=== PATIENT | male | born 1960 | race Caucasian/White ===

== ENCOUNTER 2025-07-14 19:15 | Inpatient (IN) | payer OTHER, MEDICARE ==
[~2025-07-14] VITALS: Ht 175.3 cm; Wt 80.0 kg
--- NOTE | 2025-07-14 19:22 | Physician Documentation ---
History of Present Illness General Stated Complaint: SOB Time Seen by MD: 19:21 History of Present Illness Initial Comments 65-year-old male transferred from [facility] for an episode of chest pain, the patient states over last three weeks he has had several episodes of ch est discomfort the patient states he has a an episode this morning 9:00 a.m. this morning which lasted until about 10 30 this morning. Patient has a history of hypertension and hyperlipidemia. Patient recently has traveled to [place] and returned about a week ago. No history of DVTs. Patient's pain is right now non existent he has never had any known cardiac disease. The patient is a nonsmoker. Patient has no history of DVTs or blood clots as well. The patient's symptoms are improved. No recent fevers chills nausea vomiting or diarrhea. Patient's troponin at the outside institution was 0.104 he was given aspirin at the outside institution. Medication Reconciliation Allergies: Coded Allergies: sumatriptan (Verified Allergy, Severe, 07/14/25) Scheduled Duloxetine HCl (Duloxetine HCl), 1 CAP PO DAILY, (Reported) Miscellaneous Medications Nebivolol Hcl (Bystolic tablet), 5 MG CORPAK, (Reported) Past Medical History Past Medical History: High Cholesterol, Hypertension Review of Systems All Other Systems at this time: Reviewed and Negative Physical Exam Physical Exam Physical Exam VITALS: Reviewed and as above. GENERAL: Alert, no apparent distress. HEENT: Normocephalic, atraumatic, PERRL, EOMI, dry mucosa, no erythema RESPIRATORY: Lungs clear, normal breath sounds, no respiratory distress. CHEST: No accessory muscle use, no retractions CV: Regular rate, rhythm, no edema, no murmur, No: JVD GI: Soft, non-tender, bowels sounds present, no rebound, guarding, or rigidity BACK: No CVA tenderness, or swelling MUSCULOSKELETAL: No deformities, no edema SKIN: Warm and dry, no rash NEURO: Oriented x4, No motor or sensory deficit PSYCH: Normal mood and affect, no agitation Progress Results/Orders Results/Orders Orders - OHLTHERESA ARNDT MD Chest,Single View (07/14/25 19:24) Saline Lock (07/14/25 19:24) Monitor (07/14/25 19:24) Oxygen (07/14/25 19:24) Duloxetine 30mg Capsule.Dr uGerrero 30m (07/15/25 08:00) Page Hospitalist (07/14/25 20:06) Fill Out Med Reconciliation (07/14/25 20:06) Completed Orders - OHLFS,THERESA Castillo MD Cbc/Diff (07/14/25 19:24) MG (07/14/25 19:24) Electrocardiogram (07/14/25 19:24) PBNP (07/14/25:24) Chest,Single View (07/14/25:24) D-Dimer (07/14/25:24) BMP (07/14/25 19:24) Hs Troponin I W Calculations (07/14/25 19:24) Hs Troponin I W Calculations (07/14/25 21:24) Hs Troponin I W Calculations (07/14/25 22:24) PTT (07/14/25:) Hgb A1c (07/14/25:) Lipid Panel (07/14/25) TSH (07/14/25:) Vital Signs 07/14/25 07/14/25 07/14/25 19:17 19:29 19:49 Temp 99.0 Pulse 80 88 Resp 16 16 B/P (MAP) 161/91 161/92 (115) Pulse Ox 100 99 O2 Delivery Room Air* O2 Flow Rate 0 0 0 FiO2 21 Laboratory Tests Test 07/14/25:25 White Blood Count 10.3 Red Blood Count 5.05 Hemoglobin 15.5 Hematocrit 46.3 Mean Corpuscular Volume 91.7 Mean Corpuscular Hemoglobin 30.6 Mean Corpuscular Hemoglobin Concent 33.4 Red Cell Distribution Width 13.8 Platelet Count 233 Mean Platelet Volume 9.6 Neutrophils (%) (Auto) 65.7 Lymphocytes (%) (Auto) 22.9 Monocytes (%) (Auto) 9.2 Eosinophils (%) (Auto) 1.7 Basophils (%) (Auto) 0.5 Neutrophils # (Auto) 6.8 Lymphocytes # (Auto) 2.4 Monocytes # (Auto) 0.9 Eosinophils # (Auto) 0.2 Basophils # (Auto) 0.1 CBC Comment Activated Partial Thromboplast Time 92 *H D-Dimer < 0.19 D-Dimer Comment Coagulation Comments Sodium Level 141 Potassium Level 3.5 Chloride Level 107 Carbon Dioxide Level 26.2 Anion Gap 8 Blood Urea Nitrogen 20 H Creatinine 0.88 Estimated GFR/1.73 m2 87 BUN/Creatinine Ratio 22.7 H Glucose Level 85 Hemoglobin A1c 5.5 Calcium Level 9.0 Magnesium Level 2.3 Troponin I High Sensitivity 103 *H Pro-B-Type Natriuretic Peptide 51 Albumin 3.7 Triglycerides Level 32 Cholesterol Level 254 H LDL Cholesterol 155 H HDL Cholesterol 68 H Cholesterol/HDL Ratio 3.7 Thyroid Stimulating Hormone (TSH) 3.17 Chemistry Comments EKG/XRAY/CT/US/VASC/MRI Chest X-Ray : Additional Comments Patient: PAVEL GHOSH Medical Record: [id number] [facility] : 1960, Age: 65 Sex: Male Location: ER Patient Status: [facility] ER Service Date/Time: 07/14/251923 Ordering Physician: THERESA KEVIN MD Exam: CHEST,SINGLE VIEW CLINICAL HISTORY: CP TECHNIQUE: View of the chest was obtained. WID: COMPARISON: None FINDINGS: Lungs: clear Cardiomediastinal silhouette: normal in size Bones: No acute osseous abnormality. Imaged upper Abdomen: unremarkable. IMPRESSION: 1. No acute cardiopulmonary disease. Electronically Signed by:ANNEL BURCH MD Date & Time: 07/14/252014 Dictated by: ANNEL BURCH MD Dictation date and time: 07/14/252014 Primary Care Provider: NO PRIMARY CARE PROVIDER cc: THERESA KEVIN MD ~ Medical Decision Making Findings Patient's EKG shows a sinus rhythm with a normal axis a rate of 72 the EKG was interpreted by me as a normal EKG. The patient's pulse oximetry was interpreted as a normal and adequate pulse oximetry. The patient is ekg monitor tech was interpreted as sinus rhythm. The patient has an elevated troponin, the patient was given aspirin at the referring facility he has also been on heparin. Patie nt is pain-free the patient's EKG was nonischemic appearing there was no evidence of ST-elevation or ST-depression. The patient will be admitted to the hospitalist for further workup. The patient's heart score is four Departure Admitted to Inpatient Unit: yes, to hospitalist Impression: Primary Impression: Chest pain Qualified Codes: R07.9 - Chest pain, unspecified Additional Impression: Elevated troponin Referrals: NO PRIMARY CARE PROVIDER (PCP) Signature Scribe Signature: no scribe Attestation: The note accurately reflects work and decisions made by me.Theresa Kevin MD 07/15/25 05:38 THERESA KEVIN MD Jul 14, 2025 19:21
--- NOTE | 2025-07-14 19:32 | ELECTROCARDIOGRAPH REPORT ---
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
[2025-07-14 19:37] LABS: MEAN PLATELET VOLUME 9.6 FL (7.4-10.4); RED CELL DISTRIBUTION WIDTH 13.8 % (11.5-14.5)
[2025-07-14] MEDS ORDERED: NEBI5TAB9 CORPAK (19:43)
[2025-07-14 19:56] LABS: CREATININE 0.88 MG/DL (0.60-1.10); PRO BRAIN NATRIURETIC PEPTIDE 51 PG/ML (0-125); TOTAL CARBON DIOXIDE 26.2 MMOL/L (24-32); eCRCL 86 ML/MIN; eGFR 87 ML/MIN
--- NOTE | 2025-07-14 20:16 | RADIOLOGY REPORT ---
CLINICAL HISTORY: CP TECHNIQUE: View of the chest was obtained. WID: COMPARISON: None FINDINGS: Lungs: clear Cardiomediastinal silhouette: normal in size Bones: No acute osseous abnormality. Imaged upper Abdomen: unremarkable. IMPRESSION: 1. No acute cardiopulmonary disease.
[2025-07-14] MEDS ORDERED: mag hydrox/Alum hydrox/simeth 30ml oral suspension PO PRN (20:55)
[2025-07-14] MEDS ORDERED: potassium Cl 40MEQ/1/2NS 520ml 520 ML IV PRN (20:55)
[2025-07-14] MEDS ORDERED: magnesium hydroxide 30ml (MOM) UD suspension PO PRN (20:55)
[2025-07-14] MEDS ORDERED: magnesium Cl slow-release 64mg tablet PO PRN (20:55)
[2025-07-14] MEDS ORDERED: potassium Cl 20 mEq SR tablet PO PRN (20:55)
[2025-07-14] MEDS ORDERED: magnesium sulf-water 4G/100mL 100 ML IV PRN (20:55)
[2025-07-14] MEDS ORDERED: magnesium sulf-water 2g/50mL 50 ML IV PRN (20:55)
[2025-07-14] MEDS ORDERED: ondansetron/PF 4mg/2ml inj IV PRN (20:55)
[2025-07-14] MEDS ORDERED: aminophylline 250mg/10ml inj. IV PRN (21:05)
[2025-07-14] MEDS ORDERED: metoprolol tartrate 1mg/ml inj IV PRN (21:05)
[2025-07-14] MEDS: HEPARIN DRIP-CARDIAC**PHARMACIST-TO-DOSE IV ONE (21:12)
--- NOTE | 2025-07-14 21:18 | HISTORY AND PHYSICAL-Residence ---
History & Physical Providers to CC Resident Creating Document: BRYON NOYOLA RES ~ History of Present Illness Reason for Admit\\Complaint: chest pain, possible NSTEMI History of Present Illness 65-year-old male with past medical history of hypertension, hyperlipidemia, multiple spinal surgeries was transferred from [facility] for further evaluation and management of possible NSTEMI. The patient presented to [facility] today morning with chief complaint of recurrent chest pain chest pain that started when the patient was in [place] for a six week trip from which he returned one week ago. He stated that he thinks it initially started in the 1st week of his [place] trip when he had a fall and sustained severe injury in his left ribs and was told by the PA of his group that he might have sustained a rib fracture. He he reports that a few days following that insulin restarted having dull chest discomfort and heaviness in the center of the chest radiating to his left arm and associated with the shortness of breath that lasted for 10 minutes. He reported that these episodes of chest discomfort and heaviness occurred spontaneously and intermittently without any triggers or without any relieves. He stated that he woke up multiple times from his sleep because of the chest discomfort. He mentioned that the chest discomfort and heaviness has been progressively getting worse and lasting longer. Today's episode he had the worst chest discomfort that is similar kind in the center of the chest radiating to his left arm and lasted for more than an hour and that prompted him to go seek medical attention. At [facility] the patient was found to have elevated troponins. Was suspected to have an NSTEMI and was started on IV heparin drip. The patient was also treated with a nitroglycerin and IV metoprolol. Has been transferred to our hospital for further care and evaluation. The patient currently denies any chest pain at the moment. He stated that he has mild tenderness on deep breathing of the left lateral ribs. He denied any other concerns or complaints. The patient denied any recent fever, chills, nausea, vomiting, headaches, dizziness. He denied any recent weight loss or weight gain. Allergies: Coded Allergies: sumatriptan (Verified Allergy, Severe, 07/14/25) Home Medications Home Medications Active Reported Bystolic tablet (Nebivolol Hcl) 5 Mg Tablet 5 Mg CORPAK Past Medical History Past Medical History Hypertension, hyperlipidemia, renal stones Past Surgical History Surgical History Comment "At least 25 spine and orthopedic surgeries" due to [employer] related injuries. Cervical spinal fusion Lower back fusion Right foot repair surgery. Bilateral shoulder repairs. Past Social History Social History Comment Lives at home. Denies smoking history. Occasionally drinks alcohol. Denied any recreational drug use. PCP at [facility] primary [facility] ROS All Other Systems: Reviewed and Negative ROS As stated above in the HPI, otherwise all systems are reviewed and negative. Exam Vitals: Vital Signs Date Time Temp Pulse Resp B/P (MAP) Pulse Ox O2 Delivery O2 Flow Rate FiO2 07/14/25 21:14 99.0 82 18 169/100 (123) 96 0 21 07/14/25 19:29 Room Air* General: General: Awake and Alert, no acute distress. HEENT: Conjunctiva pink, Sclera clear, Mucus Membranes moist. Neck: Supple without masses and tenderness. Resp: Unlabored. Lungs clear to auscultation bilaterally. There is tenderness on palpation of the lateral ribs on the left side. Heart: Regular Rate and rhythm, normal S1 and S2 without murmur, rub or gallop. Abdomen: Soft and non tender no organomegaly Extremities: No cyanosis,clubbing or edema. Skin: Warm and Dry. Neurology: Cranial nerves 2-12 intact. No focal motor or sensory deficits. Psychiatric: Normal mood and affect. Musculoskeletal: No joint deformities noted. Diagnostic Data Last Recorded Lab Results: 07/14/25192407/14/251924 Diagnostic Data: Laboratory Tests Test 07/14/25 19:25 D-Dimer < 0.19 MG/L FEU (0-0.50) D-Dimer Comment Coagulation Comments Advance Care Planning Advanced Care planning: Add on additional 30 min Additional Plan NSTEMI EKG shows normal sinus rhythm. No significant ST segment changes noted. Serial trending of troponin - 103, 96, 103. Chest x-ray negative for any acute cardiopulmonary disease. Patient received aspirin at [facility]. He was started on IV heparin drip. We will continue the heparin drip. Start the patient on metoprolol tartrate 25 b.i.d.. Increase beta-blockers as tolerated. Atorvastatin 40 mg p.o. daily. Nitroglycerin sublingual p.r.n. for pain. Lexiscan in the a.m.. Follow up with the A1c, TSH, lipid panel. Follow up with the echocardiography to check for any wall motion abnormalities. Hypertension Patient reported that he is on nebivolol at home. Currently started on metoprolol tartrate 25 mg p.o. b.i.d. Continue to monitor blood pressures closely. We will start p.r.n. IV hydralazine. History of hyperlipidemia Reported that he has a known history of hyperlipidemia but does not take any medications. He reports that he did not want to be on anticholesterol medications in the past. Started the patient on atorvastatin 40 mg p.o. daily. Follow up with lipid panel. CODE STATUS: Full code DVT prophylaxis: IV heparin GI prophylaxis: None Diet: NPO after midnight Disposition: Continue medical management. Follow up with the echocardiography under Lexiscan. Bryon Noyola MD Internal Medicine Resident, PGY-3 I saw and discussed the case with the resident Agree with assessment and plan as documented Date of Service: Jul 14, 2025 Billing Provider: JANEEN SYED MD, SURYA PRATIK, RES Jul 14, 2025 21:18 JANEEN SYED MD Jul 15, 2025 04:07
[2025-07-14] MEDS ORDERED: heparin 10,000 units/1 ML INJ IV PRN (21:30)
[2025-07-14 21:31] LABS: CHOL/HDL RATIO 3.7 (0.00-4.99); LDL CHOLESTEROL 155 MG/DL (50-100)
[2025-07-14 21:32] LABS: APTT 92 SECONDS (22-32)
[2025-07-14] MEDS: HEPARIN DRIP INITAL BOLUS --- DO NOT GIVE/ORDER MC ONE ×2 (21:46→21:47)
[2025-07-14] MEDS: heparin 25,000 UNIT/250ml bag 250 ML IV PRN (23:53)
[2025-07-15] VITALS (21 sets, daily range): BP systolic 120–155; BP diastolic 71–100; PULSE 68–148; RESP 14–20; TEMP 97.2–98.4; O2SAT 95–99
[2025-07-15 02:17] LABS: MEAN PLATELET VOLUME 9.3 FL (7.4-10.4); RED CELL DISTRIBUTION WIDTH 13.8 % (11.5-14.5)
[2025-07-15 02:32] LABS: CREATININE 0.82 MG/DL (0.60-1.10); TOTAL CARBON DIOXIDE 24.5 MMOL/L (24-32); eCRCL 92 ML/MIN; eGFR > 90 ML/MIN
[2025-07-15] MEDS: MESSAGE TO NURSING IV ONE ×4 (03:14→21:51)
[2025-07-15] MEDS ORDERED: DULO60CA65 PO (04:57)
[2025-07-15] MEDS: heparin 10,000 units/1 ML INJ IV PRN (07:02)
[2025-07-15] MEDS: potassium Cl 20 mEq SR tablet PO PRN (07:31)
[2025-07-15] MEDS: duloxetine 30mg CAPSULE.DR PO SCH (07:32)
[2025-07-15] MEDS: docusate sod 100mg capsule PO SCH (08:00)
[2025-07-15] MEDS: K and/or MAG REPLACEMENT MC SCH (08:00)
[2025-07-15] MEDS ORDERED: NEBI5TAB13 PO (08:53)
[2025-07-15] MEDS: regadenoson 0.4mg/5ml syringe IV PRN (09:43)
--- NOTE | 2025-07-15 11:33 | RADIOLOGY REPORT ---
HISTORY: NSTEMI TECHNIQUE: At peak stress, 35 mCi of sestamibi was administered intravenously. Soon thereafter, gated SPECT imaging of the heart was performed with the patient in the supine position. At rest, 8.6 mCi of sestamibi was administered intravenously. Soon thereafter, gated SPECT imaging of the heart was performed with the patient in the supine position. FINDINGS: The left ventricular myocardium demonstrates uniform radiotracer distribution, without perfusion defect. The left ventricular cavity is normal in size. Calculated LVEF is 46 %. No segmental wall motion abnormality. IMPRESSION: NORMAL MYOCARDIAL PERFUSION EXAM. LVEF 46 %.
[2025-07-15] MEDS: aspirin 81mg, enteric-coated 1 TAB TABLET.DR PO SCH (12:09)
[2025-07-15] MEDS: hydrALAZINE 20mg/ml inj. IV PRN (12:10)
--- NOTE | 2025-07-15 13:45 | ELECTROCARDIOGRAPH REPORT ---
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 TANNER Patterson Measurements Intervals [place] Rate: 118 P: 75 CO: 134 QRS: 64 QRSD: 93 T: 14 QT: 328 QTc: 460 Interpretive Statements Sinus tachycardia Right atrial enlargement Baseline wander in lead(s) V2 Electronically Signed On 07-16-2025 12:04:[address] TANNER Patterson Please click the below link to view image of tracing.
[2025-07-15] MEDS: diltiazem 5mg/ml 5ml inj. IV ONE (14:33)
[2025-07-15] MEDS: metoprolol tartrate 1mg/ml inj IV ONE (15:59)
--- NOTE | 2025-07-15 19:40 | PROGRESS NOTE- Residence ---
Progress Note - Resident Providers to CC Resident Creating Document: VON SANDERS RES CC: ROMANA DSOUZA MD ~ Antibiotic Timeout Antibiotic Ordered?: Yes Subjective Patient was seen and examined on bedside he says that he has very mild chest pain and headache. 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 Objective Vital Signs Date Time Temp Pulse Resp B/P (MAP) Pulse Ox O2 Delivery O2 Flow Rate FiO2 07/15/25 16:10 85 07/15/25 14:33 137/80 07/15/25 14:00 98.2 19 98 Room Air 07/15/25 02:00 0.0 21 Result Diagram: 07/15/25 0206 07/15/25 0206 General: Awake and Alert, no acute distress. HEENT: Conjunctiva pink, Sclera clear, Mucus Membranes moist. Neck: Supple without masses and tenderness. Resp: Unlabored. Lungs clear to auscultation bilaterally. Heart: Rhythm regular, tachycardic, normal S1 and S2 without murmur, rub or gallop. Abdomen: Soft and non tender no organomegaly Extremities: No cyanosis,clubbing or edema. Skin: Warm and Dry. Neurology: Cranial nerves 2-12 intact. No focal motor or sensory deficits. Psychiatric: Normal mood and affect. Musculoskeletal: No joint deformities noted. Coagulation Studies Laboratory Tests Test 07/14/25 19:25 07/15/25 12:49 Activated Partial Thromboplast Time 92 SECONDS (22-32) *H D-Dimer < 0.19 MG/L FEU (0-0.50) D-Dimer Comment APTT (Heparin Protocol) 58 SECONDS (45-60) Coagulation Comments Plan Plan Acute Coronary Syndrome Secondary to NSTEMI EKG shows normal sinus rhythm. No significant ST segment changes noted. Serial trending of troponin - 103, 96, 103. Troponin perfomed today negative Chest x-ray negative for any acute cardiopulmonary disease. Patient received aspirin at [facility]. He was started on IV heparin drip. We will continue the heparin drip. Dced Heparin started patient on Coreg 12.5 mg b.i.d. Patient received metoprolol started and Cardizem IV 5 mg in view of tachycardia Dced metoprolol Nitroglycerin sublingual p.r.n. for pain. Lexiscan: NORMAL MYOCARDIAL PERFUSION EXAM. TSH normal, Lipid panel:TG 32, cholesterol 254 LDL 155 HDL 68 in view of the started patient on 80 mg atorvastatin Echo shows:Mid infero- and anteroseptal segments appear mildly hypokinetic. Overall systolic function is normal. Overall LVEF is 55-60%. Consulted Dr. Mila Vaughan awaiting recommendations Hypertension Continue p.r.n. IV hydralazine. Held nebivolol and metoprolol, started patient on carvedilol 12.5 mg BID History of hyperlipidemia Reported that he has a known history of hyperlipidemia but does not take any medications. He reports that he did not want to be on anticholesterol medications in the past. TG 32, cholesterol 254 LDL 155 HDL 68 in view of the started patient on 80 mg atorvastatin CODE STATUS: Full code DVT prophylaxis: Heparin drip DC today in view of that started lovenox GI prophylaxis: None Diet: HEART HEALTHY DIET Disposition: Continue medical management ,consulted Dr. Mila Vaughan awaiting recommendations. Date of Service: Jul 15, 2025 Billing Provider: ROMANA DSOUZA MD, SANJAY, RES Jul 15, 2025 19:40
--- NOTE | 2025-07-15 21:27 | CARDIOLOGY REPORT ---
APPROVED REPORT EXAM: Comprehensive 2D, Doppler, and color-flow Echocardiogram. 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 113.4 cm/s AoV VTI 21.4 cm AO Peak GR. 5.1 mmHg AO Mean GR. 3 mmHg LVOT VTI 20.88 cm LVOT Peak William. 92.2 cm/s CARLENE(VTI)/BSA 3.50 cm2/m2 CARLENE (VTI) 3.50 cm2 Mitral Valve MV E Velocity 58.8 cm/s MV Peak Gr. 2 mmHg MV DECEL TIME 260 ms MV A Velocity 66.8 cm/s MV Mean Gr. 1 mmHg MV PHT 56 ms E/A Ratio 0.9 MVA (PHT) 3.93 cm2 MV VMax 65.0 cm/s MV VMean 32.4 cm/s MVA VTI 5.15 cm2 MV VTI 14.5 cm TDI Lateral E' P. V 12.16 cm/s Medial E' P. V 9.02 cm/s E/Lateral E' 4.8 E/Medial E' 6.5 Tricuspid Valve TR P. Velocity 278 cm/s RAP ESTIMATE 10 mmHg TR Peak Gr. 31 mmHg RVSP 41 mmHg LEFT VENTRICLE Normal LV size and wall thickness. Mid infero- and anteroseptal segments appear mildly hypokinetic. Overall systolic function is normal. Overall LVEF is 55-60%. RIGHT VENTRICLE RV is normal size and function. Estimated PA systolic pressure is 41 mmHg. ATRIA The left atrium size is normal. The right atrium size is normal. AORTIC VALVE Trileaflet AV appears sclerotic without stenosis or insufficiency. MITRAL VALVE Mild MV annular thickening without stenosis. Trace regurgitation. TRICUSPID VALVE TV appears structurally normal with trace regurgitation. PULMONIC VALVE Normal PV without stenosis, physiologic insufficiency. GREAT VESSELS The aortic root is normal in size. IVC is normal in size and collapses less than 50% with inspiration. PERICARDIUM Normal pericardium. No pericardial effusion seen. Other Information Study Quality: Adequate Conclusion Normal LV size and wall thickness. Mid infero- and anteroseptal segments appear mildly hypokinetic. Overall systolic function is normal. Overall LVEF is 55-60%. RV is normal size and function. Estimated PA systolic pressure is 41 mmHg. The left atrium size is normal. The right atrium size is normal. Trileaflet AV appears sclerotic without stenosis or insufficiency. Mild MV annular thickening without stenosis. Trace regurgitation. TV appears structurally normal with trace regurgitation. Normal PV without stenosis, physiologic insufficiency. Normal pericardium. No pericardial effusion seen.
--- NOTE | 2025-07-15 21:45 | CONSULTATION REPORT ---
Cardiac Consultation Report Providers to CC CC: LACI VAN MD ~ Progress Note: 65yo man with HTN, HLD admitted with CP x 4-5 weeks, found to have mildly elevated trop. States he was in [place] for ~ 6 weeks, had an injury where he hurt his left ribs after fall. Noticed CP starting a few weeks later. Reports substernal/left sided, radiates to LUE. Sometimes with exertion, sometimes at rest. Also has noticed exertional SOB. States he is very active, noticed increasing SOB when going up stairs in [place] that would require him to stop and take a break. Subjective Subjective Since, reports 1-2 episodes of CP. Denies any SOB, bleeding, LE edema. Objective Vitals Vital Signs Date Time Temp Pulse Resp B/P (MAP) Pulse Ox O2 Delivery O2 Flow Rate FiO2 07/15/25 18:00 97.3 85 14 138/77 (97) 97 Room Air 07/15/25 02:00 0.0 21 Lab Results: 07/15/25 0206 07/15/25 0206 Objective GENERAL: Awake, alert, NAD CV: Reg rhythm, normal rate. No murmurs LUNGS:CTAB GI: +BS, soft, non-tender/distended. EXT: 2+ radial pulses, no edema PSYCH: cooperative Coagulation Studies Laboratory Tests Test 07/14/25 19:25 07/15/25 12:49 Activated Partial Thromboplast Time 92 SECONDS (22-32) *H D-Dimer < 0.19 MG/L FEU (0-0.50) D-Dimer Comment APTT (Heparin Protocol) 58 SECONDS (45-60) Coagulation Comments Problem\Assessment\Plan Problems/Diagnosis: (1) Chest pain Assessment & Plan: Some typical features including exertional SOB. Possibly cardiac. Also found to have mildly elevated troponins. Risk factors of HTN, HLD, age. --MPI negative, however, TTE with regional WMA. --Given such, typical features, mildly elevated trop, will proceed with [facility] for definitive diagnosis --Cont ASA 81mg QD --Cont Atorva 80 --Cont BBx --Start Amlodipine 5mg QD Problem Qualifiers (1) Chest pain: Qualified Codes: R07.9 - Chest pain, unspecified ALLISON VAN MD Jul 15, 2025 21:45
[2025-07-16] VITALS (15 sets, daily range): BP systolic 124–180; BP diastolic 75–108; PULSE 69–90; RESP 14–20; TEMP 97.6–98.3; O2SAT 96–99
[2025-07-16 05:53] LABS: CREATININE 0.92 MG/DL (0.60-1.10); TOTAL CARBON DIOXIDE 25.6 MMOL/L (24-32); eCRCL 82 ML/MIN; eGFR 83 ML/MIN
[2025-07-16 05:59] LABS: MEAN PLATELET VOLUME 9.5 FL (7.4-10.4); RED CELL DISTRIBUTION WIDTH 13.6 % (11.5-14.5)
[2025-07-16] MEDS ORDERED: non-formulary drug (Duloxetine HCl 1 CAP) PO SCH (08:00)
[2025-07-16] MEDS ORDERED: verapamil 2.5 mg/ml inj IV ONE (10:36)
[2025-07-16] MEDS ORDERED: LIDOcaine 1% (10mg/ml) 2ml vial ONE (10:36)
[2025-07-16] MEDS ORDERED: midazolam 1 mg/ML 2ml injection ONE (10:37)
[2025-07-16] MEDS ORDERED: heparin 1,000unit/ml 10ml vial 10 ML ONE (10:37)
[2025-07-16] MEDS ORDERED: fentaNYL/PF 50MCG/1 ML 2ML syringe ONE (10:37)
[2025-07-16] MEDS ORDERED: iohexol 350 MG/ML 50ML vial IV ONE ×2 (10:37→11:40)
[2025-07-16] MEDS ORDERED: nitroGLYCERIN 500mcg/5mL D5W 5 ML IV ONE (10:38)
[2025-07-16] MEDS ORDERED: clopidogrel 300mg tablet ONE (11:34)
--- NOTE | 2025-07-16 12:03 | CARDIAC CATH REPORT ---
Cardiac Cath Report Providers to CC CC: LACI VAN MD Procedure Comments: 1. Left Heart Catheterization 2. Selective Coronary Angiography 3. Percutaneous Coronary Intervention of the Obtuse Marginal Artery x 1 4. Percutaneous Coronary Intervention of the Right Coronary Artery x 1 5. Right Radial Artery Access Brief History/Indications: 65yo man with HTN, HLD recurrent chest pains and WMA on echo referred for veronica luation. Techniques: After informed consent was obtained, the patient was brought to the cardiac catheterization laboratory and prepped and draped in usual sterile fashion for left heart catheterization and other procedures mentioned above. The right wrist was anesthetized with 1% Lidocaine and the right radial artery accessed via the Seldinger technique after which a 6Fr sheath was placed. Through this a TIG was used to engage the left ventricle, the left coronary artery, and the right coronary artery. See below for interventional procedure details. At the conclusion of the case the sheath was removed and hemostasis obtained with a VascBand. Findings Findings: HEMODYNAMICS: LV: 125/- mmHg LVEDP: 4 mmHg Ao: 125/81, MAP 103 mmHg CORONARY ARTERIES: Co Dominant LMCA: Luminal Irregularities LAD: Mid 30% stenosis D1: Luminal Irregularities D2: Small, Luminal Irregularities LCx: 20% distal stenosis OM1: Small, Luminal Irregularities OM2: 90% stenosis prior to distal bifurcation OM3: Luminal Irregularities RCA: 80% proximal stenosis. 30% distal stenosis PDA: Luminal Irregularities PL: Luminal Irregularities PERCUTANEOUS CORONARY INTERVENTION of the OM: An XBC4 guide was used to engage the left coronary artery. The OM lesion was crossed with a BMW wire. Pre-dilatation was performed with a 2.0x12mm balloon. Repeat angiography revealed adequate pre-treatment of the lesion without evidence of dissection. Subsequently, a 3.0x15mm [place] FELICIT[place] was deployed across the lesion. The lesion was not post-dilated. Repeat angiography revealed adequate stent expansion without evidence of dissection. PERCUTANEOUS CORONARY INTERVENTION of the RCA: An XB RCA guide was used to engage the right coronary artery. The RCA lesion was crossed with a BMW wire. Pre-dilatation was performed with a 2.0x12mm balloon. Repeat angiography revealed adequate pre-treatment of the lesion without evidence of dissection. Subsequently, a 2.5x15mm [place] FELICITAS was deployed across the lesion. The lesion not post-dilated. Repeat angiography revealed adequate stent expansion without evidence of dissection. Results Results: 1. Obstructive CAD involving the OM2 and prox RCA 2. PCI of OM2 with 3.0x15mm [place] FELICITAS 3. PCI of RCA with 2.5x15mm [place] FELICITAS 4. RRA access, closed with VascBand RECOMMENDATIONS: 1. Cont ASA 81mg QD indefinitely 2. Cont plavix 75mg QD x 6 months 3. Recommend uptitration of other max-tolerated GDMT ALLISON VAN MD Jul 16, 2025 12:03
--- NOTE | 2025-07-16 16:30 | PROGRESS NOTE- Residence ---
Progress Note - Resident Providers to CC Resident Creating Document: [facility] RES CC: ROMANA DSOUZA MD ~ Antibiotic Timeout Antibiotic Ordered?: No Subjective Patient was seen and examined on bedside after the stent placement, he says he is feeling much better reports that he do not have chest pain anymore. Objective Vital Signs Date Time Temp Pulse Resp B/P (MAP) Pulse Ox O2 Delivery O2 Flow Rate FiO2 07/16/25 15:04 81 07/16/25 02:00 97.8 16 124/75 (91) 98 Room Air 07/15/25 02:00 0.0 21 Result Diagram: 07/16/25 0500 07/16/25 0500 General: Awake and Alert, no acute distress. HEENT: Conjunctiva pink, Sclera clear, Mucus Membranes moist. Neck: Supple without masses and tenderness. Resp: Unlabored. Lungs clear to auscultation bilaterally. Heart: Rhythm regular, tachycardic, normal S1 and S2 without murmur, rub or gallop. Abdomen: Soft and non tender no organomegaly Extremities: No cyanosis,clubbing or edema. Skin: Warm and Dry. Neurology: Cranial nerves 2-12 intact. No focal motor or sensory deficits. Psychiatric: Normal mood and affect. Musculoskeletal: No joint deformities noted. Coagulation Studies Laboratory Tests Test 07/14/25 19:25 07/15/25 12:49 Activated Partial Thromboplast Time 92 SECONDS (22-32) *H D-Dimer < 0.19 MG/L FEU (0-0.50) D-Dimer Comment APTT (Heparin Protocol) 58 SECONDS (45-60) Coagulation Comments Plan Plan This is a pleasant 65-year-old male with past medical history of hypertension, hyperlipidemia admitted patient for the evaluation of chest pain. Plan Acute Coronary Syndrome Secondary to NSTEMI EKG shows normal sinus rhythm. No significant ST segment changes noted. Serial trending of troponin - 103, 96, 103. Troponin perfomed today negative Chest x-ray negative for any acute cardiopulmonary disease. Patient received aspirin at [facility]. He was started on IV heparin drip. We will continue the heparin drip. Dced Heparin started patient on Coreg 12.5 mg b.i.d. Patient received metoprolol started and Cardizem IV 5 mg in view of tachycardia Dced metoprolol Nitroglycerin sublingual p.r.n. for pain. Lexiscan: NORMAL MYOCARDIAL PERFUSION EXAM. TSH normal, Lipid panel:TG 32, cholesterol 254 LDL 155 HDL 68 in view of the started patient on 80 mg atorvastatin Echo shows:Mid infero- and anteroseptal segments appear mildly hypokinetic. Overall systolic function is normal. Overall LVEF is 55-60%. Consulted Dr. Vaughan, who performed PERCUTANEOUS CORONARY INTERVENTION of the OM PERCUTANEOUS CORONARY INTERVENTION of the RCA Stent s/p day [address] to that [address] Vaughan recommended aspirin 81 indefinitely and Plavix 75 for six months. Patient is currently on Plavix and clopidogrel Hypertension Continue p.r.n. IV hydralazine. Held nebivolol and metoprolol, Continue carvedilol 12.5 mg b.i.d. and amlodipine 5 mg daily History of hyperlipidemia Reported that he has a known history of hyperlipidemia but does not take any medications. He reports that he did not want to be on anticholesterol medications in the past. TG 32, cholesterol 254 LDL 155 HDL 68 in view of the started patient on 80 mg atorvastatin Continue statin 80 mg CODE STATUS: Full code DVT prophylaxis: Heparin drip DC today in view of that started lovenox GI prophylaxis: None Diet: HEART HEALTHY DIET Disposition: Continue medical management , Dr. Vaughan performed PCI today, patient is feeling much better will likely be discharged tomorrow. Date of Service: Jul 16, 2025 Billing Provider: ROMANA DSOUZA MD, SANJAY, RES Jul 16, 2025 16:30
[2025-07-16] MEDS ORDERED: enoxaparin 40mg/0.4ml syringe SUBCUT SCH (20:00)
[2025-07-17 02:00] VITALS: BP 127/84; PULSE 84; RESP 12; TEMP 98.3; O2SAT 95
[2025-07-17] MEDS ORDERED: morphine 4 MG/ML inj SYRINge IV PRN (02:05)
[2025-07-17] MEDS: HYDROcodone/acetaminophen 5mg/325mg tablet PO PRN (02:08)
[2025-07-17 06:00] VITALS: BP 136/88; PULSE 73; RESP 15; TEMP 97.5; O2SAT 99
[2025-07-17 07:55] LABS: MEAN PLATELET VOLUME 9.5 FL (7.4-10.4); RED CELL DISTRIBUTION WIDTH 13.4 % (11.5-14.5)
[2025-07-17 08:00] VITALS: RESP 15; O2SAT 99
[2025-07-17] MEDS: aspirin 81mg, enteric-coated 1 TAB TABLET.DR PO SCH (08:12)
[2025-07-17 08:36] LABS: CREATININE 0.92 MG/DL (0.60-1.10); TOTAL CARBON DIOXIDE 27.4 MMOL/L (24-32); eCRCL 82 ML/MIN; eGFR 83 ML/MIN
[2025-07-17] MEDS ORDERED: CLOP75TA34 PO (10:25)
[2025-07-17] MEDS ORDERED: NEBI5TAB13 PO ×2 (10:25→18:23)
[2025-07-17] MEDS ORDERED: NITR0.4T51 SL (10:25)
[2025-07-17] MEDS ORDERED: ATOR20TA66 PO (10:25)
[2025-07-17] MEDS ORDERED: ASPI-1071 PO (10:25)
[2025-07-17 11:00] VITALS: BP 128/84; PULSE 85; RESP 18; TEMP 98.5; O2SAT 95
--- NOTE | 2025-07-17 18:03 | DISCHARGE SUMMARY-Residence ---
Discharge Summary Providers to CC Resident Creating Document: REI MASCORRO RES ~ Discharge Summary Admission Diagnosis: NSTEMI Hospital Course DATE OF ADMISSION: 07/14/2025 DATE OF DISCHARGE: 07/17/2025 Hospital course same as mentioned discharge summary. 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 Nitroglycerin SL* (Nitrostat SL*) 0.4 Mg Tablet 0.4 MG SL Q5MIN PRN for chest pain, #7 TAB Changed Medications: Nebivolol HCl (Nebivolol HCl) 5 Mg Tablet 5 MG PO DAILY for 30 Days, #30 TAB 0 Refills (Changed from: 1 TAB) Continued Medications: Duloxetine HCl (Duloxetine HCl) 60 Mg Capsule. 1 CAP PO DAILY for 30 Days, #30 CAP 0 Refills Discharge Summary: As per HPI: 65-year-old male with past medical history of hypertension, hyperlipidemia, multiple spinal surgeries was transferred from [facility] for further evaluation and management of possible NSTEMI. The patient presented to [facility] today morning with chief complaint of recurrent chest pain chest pain that started when the patient was in [place] for a six week trip from which he returned one week ago. He stated that he thinks it initially started in the 1st week of his [place] trip when he had a fall and sustained severe injury in his left ribs and was told by the PA of his group that he might have sustained a rib fracture. He he reports that a few days following that insulin restarted having dull chest discomfort and heaviness in the center of the chest radiating to his left arm and associated with the shortness of breath that lasted for 10 minutes. He reported that these episodes of chest discomfort and heaviness occurred spontaneously and intermittently without any triggers or without any relieves. He stated that he woke up multiple times from his sleep because of the chest discomfort. He mentioned that the chest discomfort and heaviness has been progressively getting worse and lasting longer. Today's episode he had the worst chest discomfort that is similar kind in the center of the chest radiating to his left arm and lasted for more than an hour and that prompted him to go seek medical attention. At [facility] the patient was found to have elevated troponins. Was suspected to have an NSTEMI and was started on IV heparin drip. The patient was also treated with a nitroglycerin and IV metoprolol. Has been transferred to our hospital for further care and evaluation. The patient currently denies any chest pain at the moment. He stated that he has mild tenderness on deep breathing of the left lateral ribs. He denied any other concerns or complaints. The patient denied any recent fever, chills, nausea, vomiting, headaches, dizziness. He denied any recent weight loss or weight gain. Hospital course: On further evaluation EKG showed normal sinus rhythm no ST or T-wave changes noted. Serial troponins 103, 96, 103, 80, 71. Chest x-ray negative for acute cardiopulmonary disease. Patient was given aspirin at [facility]. He was started on the heparin drip. Started metoprolol tartrate 25 b.i.d. atorvastatin 40 p.o. daily nitroglycerin sublingual p.r.n. for chest pain. A1c was 5.5. Lipid panel LDL 155, HDL 68, cholesterol 254, triglycerides 32. Echo was done which showed normal LV size and thickness, mild inferior and anteroseptal segments hypokinesia overall systolic function was normal EF 55-60% RVSP 41. Lexiscan was done which showed no perfusion defect. Despite negative workup, he had concerning symptoms and he has a very active baseline hence Cardiology was consulted and coronary angiogram was done which showed occlusion of obtuse marginal and RCA PCI and stenting of the above to arteries was done. He takes nebivolol at home and he did not want to take metoprolol as he stated that it triggers his asthma. Hence he was given Coreg here 12.5 b.i.d.. On discharge increased the dose of nebivolol as he was hypertensive during his stay. Post stenting dual antiplatelets aspirin and Plavix were started, statin was continued. He is very active and has been cleared for discharge. His hospital course is uncomplicated he is hemodynamically stable on the day of discharge and her physical exam is as follows: General: Awake and Alert, no acute distress. HEENT: Conjunctiva pink, Sclera clear, Mucus Membranes moist. Neck: Supple without masses and tenderness. Resp: Unlabored. Equal breath sounds bilaterally. Heart: Regular rhythm, normal S1 and S2, no rub, murmur or gallop. Abdomen: Soft and non tender no organomegaly. Normal bowel sounds x4 quadrant normoactive. No guarding or rigidity. Extremities: Normal ROM, no swelling, nontender. No cyanosis,clubbing or edema. Musculoskeletal: Normal posture and gait. No joint swelling, deformity or tenderness, full range of motion and strength 5 x 5 in all extremities. 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 Skin: Warm and Dry. Discharge medications can be found above. Patient is being discharged with the following recommendations: FOLLOW UP WITH PCP WITHIN 2 WEEKS, GET A REFERRAL TO SET UP WITH [employer] DR VAUGHAN, AND FOLLOW UP WITH HIM ON OUTPATIET BASIS. YOU HAVE HAD TWO STENTS PLACED IN THE FOLLOWING ARTERIES: 1. Obstructive CAD involving the OM2 and prox RCA 2. PCI of OM2 with 3.0x15mm [place] FELICITAS 3. PCI of RCA with 2.5x15mm [place] FELICITAS RECOMMEDNED TO CONTINUE PLAVIX, ASA, STATIN AND BETA JORGE A NEVIBOLOL. R ECOMMENDED TO CHECK BP EVERY MORNING AND KEEP A LOG OF IT, SHOW IT TO YOU PCP AND ADJUST MED DOSE BASED ON BP VALUES, HOLD BP MEDS FOR SBP LES THAN 100 AND HR LESS THAN 60. 1. Cont ASA 81mg QD indefinitely 2. Cont plavix 75mg QD x 6 months YOUR LIPID PANEL cholesterol 254 LDL 155 HDL 68 in view of the started 80 mg atorvastatin. Echo shows:Mid infero- and anteroseptal segments appear mildly hypokinetic. Overall systolic function is normal. Overall LVEF is 55-60%. IF CONDITON WORSENS WILMAN 911 OR GO TO THE NEAREST ER IMMEDIATELY. *Problems/Diagnosis: (1) Chest pain Status: Acute (2) NSTEMI (non-ST elevated myocardial infarction) Total Time Spent on D/C: > 30 Minutes Date of Service: Jul 17, 2025 Billing Provider: ROMANA DSOUZA MD Problem Qualifiers (1) Chest pain: Chest pain type: unspecified Qualified Codes: R07.9 - Chest pain, unspecified REI MASCORRO, SREEDHAR Jul 17, 2025 18:03
[2025-07-17] MEDS ORDERED: AMLO5TAB16 PO (18:23)
== END 2025-07-17 11:45 | disposition home or self-care (01) | DRG 322 ==
LOC: ER 19:17 → ED HOLD 20:59 → EDBEDREQ 23:01 → CMPBEDREQ 23:02 → PCU 3S 23:36
PROVIDERS: ADMIT Internal Medicine; ATTEND Family Medicine
PROC: 4A02XM4 Measurement of Cardiac Total Activity, External Approach (ICD-10-PCS; 2025-07-15)
PROC: 3E073KZ Introduction of Other Diagnostic Substance into Coronary Artery, Percutaneous Approach (ICD-10-PCS; 2025-07-15)
PROC: 027135Z Dilation of Coronary Artery, Two Arteries with Two Drug-eluting Intraluminal Devices, Percutaneous Approach (ICD-10-PCS; principal; 2025-07-16)
PROC: 4A023N7 Measurement of Cardiac Sampling and Pressure, Left Heart, Percutaneous Approach (ICD-10-PCS; 2025-07-16)
PROC: B2111ZZ Fluoroscopy of Multiple Coronary Arteries using Low Osmolar Contrast (ICD-10-PCS; 2025-07-16)
DX: I21.4 Non-ST elevation (NSTEMI) myocardial infarction (principal); I10 Essential (primary) hypertension; E78.00 Pure hypercholesterolemia, unspecified; I25.10 Atherosclerotic heart disease of native coronary artery without angina pectoris
CPT/HCPCS: 93306; 93458; 96365; 99285; C9600; C9601; 36415; 71045; 78452; 80048; 80053; 80061; 83036; 83735; 83880; 84443; 84484; 85025; 85379; 85730; 87081; 93005; 93017; 99152; 99153; A6258; A9500; C1725; C1751; C1769; C1874; C1894; G0378; J0360; J1644; J2003; J2250; J2785; J3010; J3490; J7030; Q9967